=== PATIENT | male | born 1985 | race American Indian/Alaskan Native ===

== ENCOUNTER 2021-01-18 13:20 | Emergency (ER) | payer SELFPAY | END 2021-01-18 13:30 | disposition left against medical advice (07) | LOC: ED 13:20 | DX: Z53.21 Procedure and treatment not carried out due to patient leaving prior to being seen by health care provider (principal) ==

== ENCOUNTER 2021-04-01 13:56 | Emergency (ER) | payer SELFPAY ==
[2021-04-01 15:38] VITALS: BP 111/76
== END 2021-04-01 22:30 | disposition left against medical advice (07) ==
LOC: ED 13:56
DX: M79.651 Pain in right thigh (principal); Z53.21 Procedure and treatment not carried out due to patient leaving prior to being seen by health care provider

== ENCOUNTER 2021-04-02 22:17 | Emergency (ER) | payer SELFPAY ==
[2021-04-02 23:57] VITALS: BP 141/78
[2021-04-03] MEDS ORDERED: oxyCODONE /ACETAMINOPHEN 5-325MG TAB PO ONE (00:41)
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
== END 2021-04-03 01:59 | disposition home or self-care (01) ==
LOC: ED 22:17
DX: L03.115 Cellulitis of right lower limb (principal); Z88.6 Allergy status to analgesic agent; Z79.899 Other long term (current) drug therapy
CPT/HCPCS: 99282